=== PATIENT | male | born 1990 | race Caucasian/White ===

== ENCOUNTER 2016-10-26 10:16 | Emergency (ER) | payer BC ==
[2016-10-26 10:44] VITALS: TEMP 97.7; BMI 33.0
[2016-10-26] MEDS ORDERED: SODIUM CHLORIDE 1,000 ML IV STA ×2 (11:37→12:48)
[2016-10-26] MEDS ORDERED: ONDANSETRON 4 MG/2 ML VIAL IVPUSH ONE ×2 (11:37→13:18)
[2016-10-26] MEDS ORDERED: ONDANSETRON 4 MG/2 ML VIAL ONE ×2 (11:58→13:13)
--- NOTE | 2016-10-26 12:12 | PDOC ---
History of Present Illness - General Chief Complaint: Nausea/Vomiting Stated Complaint: NAUSEA, VOMITING Time Seen by Provider: 10/26/16 11:27 History Source: Patient Exam Limitations: No Limitations - History of Present Illness Travel History: No Initial Comments: 10/26/16 12:12 26 y/o male presents to the ED with complaints of nausea since this morning without abdominal pain, headache, dizziness, or vomiting. Patient states has had no recent travel, recent illness and states is on methadone secondary to opiate abuse but states no recent dosage adjustment. Patient denies other illicit drug use, alcohol use, dysuria, diarrhea abdominal distention or GI disorders. Timing/Duration: reports: constant Aggravating Factors: improves with: None Alleviating Factors: improves with: None Past History - Past Medical History Allergies/Adverse Reactions: Allergies Allergy/AdvReac Type Severity Reaction Status Date / Time Penicillins Allergy Hives Verified 10/26/16 10:40 shellfish derived Allergy Hives Verified 10/26/16 10:40 Home Medications: Ambulatory Orders Methadone [Dolophine -] 80 mg PO DAILY 10/26/16 - Psycho/Social/Smoking Cessation Hx Suicidal Ideation: No Smoking History: Never smoked Hx Alcohol Use: No Substance Use Type: Opiates Patient Lives Alone: No Lives with/in: parents Review of Systems - Review of Systems Able to Perform ROS?: Yes Constitutional: No: Symptoms Reported HEENTM: No: Symptoms Reported Respiratory: No: Symptoms reported Cardiac (ROS): No: Symptoms Reported ABD/GI: Yes: Nausea : No: Symptoms Reported Musculoskeletal: No: Symptoms Reported Integumentary: No: Symptoms Reported Neurological: No: Symptoms reported Endocrine: No: Symptoms Reported Hematologic/Lymphatic: No: Symptoms Reported *Physical Exam - Vital Signs Last Vital Signs Temp Pulse Resp BP Pulse Ox 97.7 F 78 19 128/81 99 10/26/16 10:40 10/26/16 10:40 10/26/16 10:40 10/26/16 10:40 10/26/16 10:40 - Physical Exam General Appearance: Yes: Nourished, Appropriately Dressed. No: Apparent Distress HEENT: positive: EOMI, NIKHIL, Pharynx Normal Neck: positive: Supple Respiratory/Chest: positive: Lungs Clear, Normal Breath Sounds. negative: Respiratory Distress, Accessory Muscle Use Cardiovascular: positive: Regular Rhythm, Regular Rate. negative: Murmur Gastrointestinal/Abdominal: positive: Soft. negative: Tenderness Musculoskeletal: negative: CVA Tenderness Extremity: positive: Normal Capillary Refill Integumentary: positive: Normal Color, Warm, Moist Neurologic: positive: Motor Strength 5/5. negative: Normal Mood/Affect ( anxious and pacing) ED Treatment Course - LABORATORY CBC & Chemistry Diagram: 10/26/16 12:10 10/26/16 12:10 Medical Decision Making - Medical Decision Making 10/26/16 12:06 Otherwise healthy male with complaints of nausea since awakening this morning. Patient denies medical history and states is currently on methadone for opiate abuse. Patient seems very anxious and uneasy. Will get labs, check urine IV fluids Zofran and reassessed. 10/26/16 12:48 Laboratory Tests 10/26/16 10/26/16 10/26/16 12:10 12:10 12:10 WBC 11.3 H Hgb 13.0 Hct 39.5 Plt Count 198 Neutrophils % 88.2 H Sodium 137 Potassium 4.2 Chloride 101 Carbon Dioxide 26 Anion Gap 10 BUN 14 Creatinine 0.9 Random Glucose 123 H Calcium 9.9 Magnesium 2.1 Urine pH 9.0 H Urine Protein 2+ H Urine Ketones Trace H Ur Leukocyte Esterase Trace H Patient states nausea has resolved. Patient with noted ketones in urine. Patient ordered for second bag of IV fluids. Patient to be given a by mouth challenge. 10/26/16 13:17 Laboratory Tests 10/26/16 12:10 Urine RBC 1 Urine WBC 1 Patient appears very anxious and states nausea has returned. Patient will be given another dose of Zofran and discharged home with the same. Patient does not want state for the second bag of fluid. *DC/Admit/Observation/Transfer Diagnosis at time of Disposition: Nausea, Ketonuria, Elevated glucose level - Discharge Dispostion Disposition: HOME Condition at time of disposition: Improved - Patient Instructions Printed Discharge Instructions: DI for Nausea -- Adult, Limiting Your Intake of Sugar Additional Instructions: Please follow-up with your PCP in regards to today's visit. Please take Zofran as needed for nausea. I have enclosed information in regards to limiting your sugar intake
[2016-10-26 12:27] LABS: URINE APPEARANCE CLEAR; URINE BILIRUBIN NEGATIVE (NEGATIVE); URINE BLOOD NEGATIVE (NEGATIVE); URINE COLOR YELLOW; URINE GLUCOSE (UA) NEGATIVE (NEGATIVE); URINE KETONE TRACE (NEGATIVE); URINE NITRITE NEGATIVE (NEGATIVE); URINE UROBILINOGEN NEGATIVE E.U./dl (0.2-1.0)
[2016-10-26 12:28] LABS: URINE LEUK ESTERASE TRACE (NEGATIVE); URINE PROTEIN 2+ (NEGATIVE)
[2016-10-26 12:32] LABS: BASOPHIL 0.2 % (0-2.0); EOSINOPHIL 0.2 % (0-4.5); MCH 25.8 pg (25.7-33.7); MEAN CELL VOLUME 78.3 fl (80-96); MEAN PLT VOLUME 8.9 fl (7.5-11.1); NEUTROPHILS 88.2 % (42.8-82.8); PLATELET COUNT 198 K/MM3 (134-434); RDW 13.4 % (11.9-15.9); WHITE BLOOD COUNT 11.3 K/mm3 (4.0-10.0)
[2016-10-26 12:39] LABS: ALBUMIN 4.5 g/dl (3.4-5.0); ANION GAP 10 (8-16); CALCIUM 9.9 mg/dL (8.5-10.1); CO2 26 mmol/L (21-32); CREATININE 0.9 mg/dL (0.7-1.3); GLUCOSE,RANDOM 123 mg/dL (74-106); MAGNESIUM 2.1 mg/dL (1.8-2.4)
[2016-10-26 12:44] LABS: ALK PHOS 118 U/L (45-117); BILIRUBIN,TOTAL 0.5 mg/dL (0.2-1.0); SGOT/AST 22 U/L (15-37); SGPT/ALT 33 U/L (12-78); TOT PROT 7.6 g/dl (6.4-8.2)
[2016-10-26 12:46] LABS: URINE MUCUS MODERATE; URINE RBC 1 /hpf (0-3); URINE WBC 1 /hpf (3-5)
[2016-10-26 13:46] VITALS: BP 124/60; PULSE 75
== END 2016-10-26 14:03 | disposition home or self-care (01) ==
LOC: JER 10:16
PROC: 3E0337Z Introduction of Electrolytic and Water Balance Substance into Peripheral Vein, Percutaneous Approach (ICD-10-PCS; principal; 2016-10-26)
PROC: 3E033GC Introduction of Other Therapeutic Substance into Peripheral Vein, Percutaneous Approach (ICD-10-PCS; 2016-10-26)
DX: R82.4 Acetonuria (principal); R73.9 Hyperglycemia, unspecified
CPT/HCPCS: 36415; 80053; 81003; 81015; 83690; 83735; 85025; 99284-25